=== PATIENT | female | born 1970 | race Caucasian/White ===

== ENCOUNTER 2023-03-23 12:20 | Emergency (ER) | payer OTHER ==
[~2023-03-23] VITALS: Ht 167.6 cm; Wt 90.7 kg
[2023-03-23] MEDS ORDERED: PREDNISONE50 MG PO (13:57)
== END 2023-03-23 14:15 | disposition home or self-care (01) ==
LOC: ED 12:20
DX: F45.8 Other somatoform disorders (principal); Z20.822 Contact with and (suspected) exposure to COVID-19